=== PATIENT | female | born 1980 | race Two or more races ===

== ENCOUNTER 2017-11-21 23:31 | Emergency (ER) | payer SELFPAY ==
[2017-11-21] MEDS ORDERED: HYDROMORPHONE HCL INJ/PF 2 MG/ML AMPULE IV ONE (23:41)
--- NOTE | 2017-11-22 00:37 | ER Document Report ---
ED General Pain - General Chief Complaint: Rib Pain Stated Complaint: FALL/ RIB PAIN Time Seen by Provider: 11/21/17 23:41 Mode of Arrival: Stretcher Information source: Patient TRAVEL OUTSIDE OF THE [place] IN LAST 30 DAYS: No - HPI Patient complains to provider of: Left rib pain after fall injury Onset: Just prior to arrival Onset/Duration: Sudden Quality of pain: Achy Severity: Severe Pain Level: 5 Context: New onset Associated symptoms: None Exacerbated by: Movement, Coughing, Deep breathing Relieved by: Denies Similar symptoms previously: No Recently seen / treated by doctor: No Notes: Patient is a 37-year-old female presenting to the emergency room complaining of left lower rib pain after fall, states she was standing on a stool in the stool gave out causing her to fall impacting her left lower ribs on a bench, she reports that it is painful to move, to take a deep breath or cough, she denies any head injury or loss of consciousness, no nausea or vomiting - Related Data Allergies/Adverse Reactions: No Known Allergies Allergy (Verified 10/08/12 19:10) Past Medical History - General Information source: Patient - Social History Smoking Status: Unknown if Ever Smoked Family History: Reviewed & Not Pertinent - Past Medical History Cardiac Medical History: Denies: Hx Coronary Artery Disease, Hx Heart Attack, Hx Hypertension Pulmonary Medical History: Denies: Hx Asthma, Hx Bronchitis, Hx COPD, Hx Pneumonia Neurological Medical History: Denies: Hx Cerebrovascular Accident, Hx Seizures Musculoskeletal Medical History: Denies Hx Arthritis Past Surgical History: Reports: Hx Hysterectomy, Hx Thyroid Surgery - partial thyroidectomy - Immunizations Hx Diphtheria, Pertussis, Tetanus Vaccination: No Review of Systems - Review of Systems Constitutional: No symptoms reported EENT: No symptoms reported Cardiovascular: No symptoms reported Respiratory: No symptoms reported Gastrointestinal: No symptoms reported Genitourinary: No symptoms reported Female Genitourinary: No symptoms reported Musculoskeletal: See HPI Skin: No symptoms reported Hematologic/Lymphatic: No symptoms reported Neurological/Psychological: No symptoms reported -: Yes All other systems reviewed and negative Physical Exam - Vital signs Interpretation: Normal - General General appearance: Appears well, Alert - HEENT Head: Normocephalic, Atraumatic Eyes: Normal Pupils: PERRL Neck: Other - Healed scar to anterior neck - Respiratory Respiratory status: No respiratory distress Chest status: Tender - To palpate in the left lower ribs anteriorly, laterally and posteriorly, no palpable deformity, no crepitus Breath sounds: Normal Chest palpation: Normal - Cardiovascular Rhythm: Regular Heart sounds: Normal auscultation Murmur: No - Abdominal Inspection: Normal Distension: No distension Bowel sounds: Normal Tenderness: Nontender Organomegaly: No organomegaly - Back Back: Normal, Nontender - Extremities General upper extremity: Normal inspection, Nontender, Normal color, Normal ROM , Normal temperature General lower extremity: Normal inspection, Nontender, Normal color, Normal ROM , Normal temperature, Normal weight bearing. No: Gilberto's sign - Neurological Neuro grossly intact: Yes Cognition: Normal Orientation: AAOx4 [place] Coma Scale Eye Opening: Spontaneous [place] Coma Scale Verbal: Oriented [place] Coma Scale Motor: Obeys Commands [place] Coma Scale Total: 15 Speech: Normal Motor strength normal: LUE, RUE, LLE, RLE Sensory: Normal - Psychological Associated symptoms: Normal affect, Normal mood - Skin Skin Temperature: Warm Skin Moisture: Dry Skin Color: Normal Course - Re-evaluation Re-evalutation: 11/22/17 02:49 Patient resting comfortably, reports some pain relief, however continues to have a moderate amount pain, imaging findings discussed at bedside which are unremarkable, no evidence of a rib fracture or other injury, her abdomen is soft and nontender there does not seem to be any evidence for a spleen injury or other intra-abdominal injury as her tenderness is all on the bony portion of the lower ribs, patient was given an abdominal binder to uses a rib binder which seems to be giving her some relief at this time, she will be discharged with instructions for follow-up and advised to return if any additional concerns , patient acknowledges understanding and agreement with this plan - Diagnostic Test Radiology reviewed: Image reviewed, Reports reviewed Discharge - Discharge Clinical Impression: Contusion of rib on left side Qualifiers: Encounter type: initial encounter Qualified Code(s): S20.212A - Contusion of left front wall of thorax, initial encounter Condition: Stable Disposition: HOME, SELF-CARE Instructions: Rib Contusion ([facility]), Rib Injuries and Fractures ([facility]) Additional Instructions: Follow up with your primary care provider in one to 2 days. Return to the emergency room immediately if symptoms worsen or any additional concerns. Prescriptions: Ibuprofen 600 mg PO TID #30 tablet Oxycodone HCl/Acetaminophen [Percocet 5-325 mg Tablet] 1 - 2 tab PO ASDIR PRN # 20 tablet PRN Reason: Forms: Return to Work
[2017-11-22] MEDS ORDERED: ONDANSETRON HCL INJ/PF 4 MG/2 ML SDV IV ONE (01:53)
[2017-11-22] MEDS ORDERED: FENTANYL CITRATE INJ/PF 100 MCG/2 ML AMPUL IV ONE (01:56)
--- NOTE | 2017-11-22 02:28 | RADIOLOGY REPORT (SQ) ---
CLINICAL INDICATION: 37-year-old female status post fall with left rib pain. TECHNICAL DATA: Four views of the left sided ribs were performed as well as a PA chest. FINDINGS: Four views of the left-sided ribs were performed and reveal no evidence of fracture or other acute osseous injury. No focal lytic or sclerotic bone lesions are identified. No definite pneumothorax is seen. No definite soft tissue abnormalities are identified. The lungs are well expanded and clear. The cardiac silhouette and pulmonary vascularity are within normal limits. IMPRESSION: No evidence of acute rib injury. No evidence of acute intrathoracic disease.
[2017-11-22 03:21] VITALS: BP 134/78
[2017-11-22] MEDS ORDERED: HYDROCODONE/ACETAMINOPHEN 5-325 MG (6 TAB/ER DISP) PO PRN (03:42)
== END 2017-11-22 03:50 | disposition home or self-care (01) ==
LOC: ER 23:31
DX: S20.212A Contusion of left front wall of thorax, initial encounter (principal); R07.81 Pleurodynia; W01.190A Fall on same level from slipping, tripping and stumbling with subsequent striking against furniture, initial encounter
CPT/HCPCS: 99284; 96374; 96375; 71101; J3010; J1170; J2405

== ENCOUNTER → 2018-11-05 | Outpatient (CLI) | payer OTHER ==
--- NOTE | 2018-11-05 16:12 | WOMENS IMAGING REPORT ---
EXAM DESCRIPTION: 3D DX MAMMO BILAT; U/S BREAST UNILAT LIMITED COMPLETED DATE/TIME: 11/05/2018 8:47 am; 11/05/2018 9:22 am REASON FOR STUDY: N63.20 UNSPECIFIED LUMP IN THE LEFT BREAST, UNSPECIFIED QUADRANT; LT BREAST N63.20 N63.20 UNSPECIFIED LUMP IN THE LEFT BREAST, UNSPECIFIED QUAD COMPARISON: No previous EXAM PARAMETERS: Standard craniocaudal and mediolateral oblique views of each breast recorded using digital acquisition and breast tomosynthesis. Additional left breast 90 mediolateral view, cone compression upper outer quadrant left breast, viky tional right breast exaggerated craniocaudad view Left breast ultrasound was also performed. Read with the assistance of CAD: .[employer] Library Clerk Version 9.2 LIMITATIONS: None. FINDINGS: RIGHT BREAST MASSES: No suspicious masses. CALCIFICATIONS: No new or suspicious calcifications. ARCHITECTURAL DISTORTION: None. DEVELOPING DENSITY: None. ASYMMETRY: None noted. OTHER: No other significant findings. LEFT BREAST MASSES: No suspicious masses. CALCIFICATIONS: No new or suspicious calcifications. ARCHITECTURAL DISTORTION: None. DEVELOPING DENSITY: None. ASYMMETRY: None noted. OTHER: No other significant finding. Left breast ultrasound: Patient presents with a palpable abnormality in the lateral left breast. Ultrasound of the lateral l eft breast in the area of palpable abnormality indicated by the patient demonstrates no discrete cyst ic or solid lesions. No dilated ducts. No acoustic absorption. No focal findings. IMPRESSION: No mammographic evidence for malignancy right breast. No mammographic or sonographic evidence for malignancy left breast BREAST DENSITY: c. The breasts are heterogeneously dense, which may obscure small masses. BIRAD: ASSESSMENT: 1 Negative. RECOMMENDATION: RECOMMENDED FOLLOW UP: Please continue yearly bilateral screening mammography/ tomos ynthesis in November 2019. Consider tomosynthesis, given heterogeneously dense fibroglandular tissue bilaterally. Please note that negative mammography and ultrasound should not deter biopsy of a clinically suspicio us lesion. SPECIFIC INTERVENTION/IMAGING/CONSULTATION RECOMMENDED:No additional imaging intervention/ imaging/co nsultation needed at this time. COMMUNICATION:Patient notified by letter COMMENT: The patient has been notified of the results by letter per MQSA requirements. Additional no tification policies are in place for contacting patient with suspicious or incomplete findings. Quality ID #[id number]: The [employer] recommends an annual screening mammogram for women aged 40 years or over. This facility utilizes a reminder system to ensure that all patients receive reminder letters, and/or direct phone calls for appointments. This includes reminders for routine scr eening mammograms, diagnostic mammograms, or other Breast Imaging Interventions when appropriate. Th is patient will be placed in the appropriate reminder system. TECHNICAL DOCUMENTATION: FINDING NUMBER: (1) ASSESSMENT: (1) JOB ID: [id number] [employer]- All Rights Reserved Reading location - IP/workstation name: [email or web address]
== END ==
LOC: WI 08:23
PROVIDERS: ATTEND Nurse Practitioner Adult Health
DX: N63.22 Unspecified lump in the left breast, upper inner quadrant (principal)
CPT/HCPCS: 76642; 77066; G0279; 77062

== ENCOUNTER 2019-12-14 13:43 | Emergency (ER) | payer OTHER ==
--- NOTE | 2019-12-14 13:55 | ER Document Report ---
ED Medical Screen (RME) - General Stated Complaint: ANXIETY Time Seen by Provider: 12/14/19 13:49 Primary Care Provider: CORNELIA CASIANO NP [Primary Care Provider] - Follow up as needed Mode of Arrival: Ambulatory Information source: Patient Notes: 39-year-old female patient presented to the emergency department with anxiety and suicidal thoughts. Patient apparently has a history of same, [facility]. Patient appears acutely anxious, hyperventilating, keeps stating I just want to . Patient given Ativan 2 mg IM. She was taken immediately to room 18 where we helped change her into paper scrubs. Patient is cooperative with staff. I have greeted and performed a rapid initial assessment of this patient. A com prehensive ED assessment and evaluation of the patient, analysis of test results and completion of the medical decision making process will be conducted by additional ED providers. I have specifically instructed the patient or family members with the patient to immediately return to any nursing staff should anything change in the patient's condition or with their chief complaint. TRAVEL OUTSIDE OF THE [place] IN LAST 30 DAYS: No - Related Data Allergies/Adverse Reactions: No Known Allergies Allergy (Verified 10/08/12 19:10) Past Medical History - Social History Chew tobacco use (# tins/day): No Frequency of alcohol use: Occasional Drug Abuse: Marijuana - Past Medical History Cardiac Medical History: Denies: Hx Coronary Artery Disease, Hx Heart Attack, Hx Hypertension Pulmonary Medical History: Denies: Hx Asthma, Hx Bronchitis, Hx COPD, Hx Pneumonia Neurological Medical History: Denies: Hx Cerebrovascular Accident, Hx Seizures Renal/ Medical History: Denies: Hx Peritoneal Dialysis Musculoskeltal Medical History: Denies Hx Arthritis Past Surgical History: Reports: Hx Hysterectomy, Hx Thyroid Surgery - partial thyroidectomy, Hx Tubal Ligation - Immunizations Hx Diphtheria, Pertussis, Tetanus Vaccination: No Physical Exam - Vital signs Vitals: Temp Pulse Resp BP Pulse Ox 98.9 F 112 H 20 148/105 H 100 12/14/19 13:49 12/14/19 13:49 12/14/19 13:49 12/14/19 13:49 12/14/19 13:49 Course - Vital Signs Vital signs: Temp Pulse Resp BP Pulse Ox 98.9 F 112 H 20 148/105 H 100 12/14/19 13:49 12/14/19 13:49 12/14/19 13:49 12/14/19 13:49 12/14/19 13:49 Doctor's Discharge - Discharge Referrals: CORNELIA CASIANO NP [Primary Care Provider] - Follow up as needed
[2019-12-14] MEDS ORDERED: LORAZEPAM INJ 2 MG/1 ML VIAL IM ONE (13:56)
[2019-12-14 14:53] LABS: ABSOLUTE BASOPHILS # (AUTO) 0.1 10^3/uL (0.0-0.2); ABSOLUTE EOSINOPHILS # (AUTO) 0.2 10^3/uL (0.0-0.6); ABSOLUTE LYMPHOCYTES (AUTO) 1.6 10^3/uL (0.5-4.7); ABSOLUTE MONOCYTES (AUTO) 0.7 10^3/uL (0.1-1.4); ABSOLUTE NEUT (AUTO) 6.2 10^3/uL (1.7-8.2); BASOPHILS % (AUTO) 0.6 % (0-2); EOSINOPHILS % (AUTO) 2.1 % (0-6); HEMATOCRIT 39.6 % (36.0-47.0); HEMOGLOBIN 14.1 g/dL (12.0-15.5); LYMPHOCYTES % (AUTO) 18.7 % (13-45); MEAN CORPUSCULAR HEMOGLOBIN 28.9 pg (27.0-33.4); MEAN CORPUSCULAR HGB CONC 35.5 g/dL (32.0-36.0); MEAN CORPUSCULAR VOLUME 81 fl (80-97); MONOCYTES % (AUTO) 7.5 % (3-13); PLATELET COUNT 379 10^3/uL (150-450); RED BLOOD COUNT 4.86 10^6/uL (3.72-5.28); RED CELL DISTRIBUTION WIDTH 14.1 % (11.5-14.0); SEGMENTED NEUTROPHILS % (AUTO) 71.1 % (42-78); TOTAL CELLS COUNTED % (AUTO) 100 %; WHITE BLOOD COUNT 8.8 10^3/uL (4.0-10.5)
[2019-12-14 14:55] LABS: ALBUMIN 4.7 g/dL (3.5-5.0); ALKALINE PHOSPHATASE 86 U/L (38-126); ANION GAP 16 (5-19); ASPARTATE AMINO TRANSFERASE 26 U/L (14-36); BILIRUBIN,TOTAL 0.9 mg/dL (0.2-1.3); BLOOD UREA NITROGEN 10 mg/dL (7-20); CALCIUM 10.2 mg/dL (8.4-10.2); CARBON DIOXIDE 16 mmol/L (22-30); CHLORIDE 109 mmol/L (98-107); GLUCOSE 101 mg/dL (75-110); POTASSIUM 4.3 mmol/L (3.6-5.0); TOTAL PROTEIN 8.2 g/dL (6.3-8.2)
[2019-12-14 14:57] LABS: APPEARANCE,URINE CLEAR; BILIRUBIN,URINE NEGATIVE (NEGATIVE); COLOR,URINE YELLOW; GLUCOSE, URINE NEGATIVE (NEGATIVE); KETONES,URINE NEGATIVE (NEGATIVE); LEUKOCYTE ESTERASE,URINE NEGATIVE (NEGATIVE); NITRITE,URINE NEGATIVE (NEGATIVE); PROTEIN,URINE NEGATIVE (NEGATIVE); URINE SPECIFIC GRAVITY 1.014; UROBILINOGEN,URINE NEGATIVE mg/dL (<2.0)
[2019-12-14 14:58] LABS: ACETAMINOPHEN < 10 ug/mL (10-30); ALCOHOL < 10 mg/dL (NONE DETECTED); SALICYLATE < 1.0 mg/dL (2.0-20.0)
--- NOTE | 2019-12-14 15:10 | ER Document Report ---
ED Psych Disorder / Suicide - General Chief Complaint: Suicidal Ideation Stated Complaint: ANXIETY Time Seen by Provider: 12/14/19 13:49 Primary Care Provider: CORNELIA CASIANO NP [NO LOCAL MD] - Follow up as needed Mode of Arrival: Ambulatory Notes: Patient is a 39-year-old female with a past history of depression who presents to the emergency department with anxiety and suicidal ideation. Patient states that she had an argument with her daughter and states that, "she called me a bit ch." Patient states that she did not express her feelings towards her daughter. Patient states that she wanted to . Patient received Ativan in triage and states that she does feel better after receiving that medication. Patient states that she does feel little bit dizzy, and felt like this when she started to have anxiety. Denies any auditory or visual hallucinations. Denies any shortness of breath, difficulty breathing, or any other symptoms. Patient reports that she takes trazodone and Effexor. She states that she has been on these medications for a while. Patient states that she is on a new medication and she feels it is a "placebo pill." Patient states that she has poor coping mechanisms. TRAVEL OUTSIDE OF THE [place] IN LAST 30 DAYS: No - Related Data Allergies/Adverse Reactions: No Known Allergies Allergy (Verified 10/08/12 19:10) Past Medical History - General Information source: Patient - Social History Smoking Status: Never Smoker Chew tobacco use (# tins/day): No Frequency of alcohol use: Occasional Drug Abuse: Marijuana Family History: Reviewed & Not Pertinent - Past Medical History Cardiac Medical History: Denies: Hx Coronary Artery Disease, Hx Heart Attack, Hx Hypertension Pulmonary Medical History: Denies: Hx Asthma, Hx Bronchitis, Hx COPD, Hx Pneumonia Neurological Medical History: Denies: Hx Cerebrovascular Accident, Hx Seizures Renal/ Medical History: Denies: Hx Peritoneal Dialysis Musculoskeletal Medical History: Denies Hx Arthritis Psychiatric Medical History: Reports: Hx Depression Past Surgical History: Reports: Hx Hysterectomy, Hx Thyroid Surgery - partial thyroidectomy, Hx Tubal Ligation - Immunizations Hx Diphtheria, Pertussis, Tetanus Vaccination: No Review of Systems - Review of Systems Notes: REVIEW OF SYSTEMS: CONSTITUTIONAL : Denies recent illness. Denies recent unintentional weight loss. Denies fever, chills, or sweats. EENT: Denies eye, ear, throat, or mouth pain, discharge, or symptoms. Denies nasal or sinus congestion. CARDIOVASCULAR: Denies chest pain. RESPIRATORY: Denies shortness of breath, cough, congestion, difficulty breathing , or wheezing. GASTROINTESTINAL: Denies nausea, vomiting, and diarrhea. Denies abdominal pain. Denies constipation. GENITOURINARY: Denies difficulty urinating, burning, blood in urine, urgency or frequency. MUSCULOSKELETAL: Denies neck and back pain. Denies joint pain or swelling. SKIN: Denies rash, itchiness, or lesions HEMATOLOGIC : Denies easy bruising or bleeding. LYMPHATIC: Denies swollen, painful, enlarged glands. NEUROLOGICAL: Denies no numbness or tingling denies weakness. Denies headache. Denies altered mental status. Denies alteration in speech. PSYCHIATRIC: See HPI. All other systems reviewed and negative. Physical Exam - Vital signs Vitals: Temp Pulse Resp BP Pulse Ox 98.9 F 112 H 20 148/105 H 100 12/14/19 13:49 12/14/19 13:49 12/14/19 13:49 12/14/19 13:49 12/14/19 13:49 - Notes Notes: PHYSICAL EXAMINATION: GENERAL: Appears well, healthy, well-nourished, no acute distress. HEAD: Normocephalic, atraumatic. EYES: PERRL, conjunctiva normal, all extraocular movements intact, sclera nonicteric ENT: Moist mucous membranes. NECK: Supple, no noticeable swelling, redness, rash. Normal range of motion. LUNGS: Equal breath sounds bilaterally and clear to auscultation. No wheezes rales or rhonchi. CARDIOVASCULAR: S1-S2, regular rate, regular rhythm. Radial pulses 2+, normal. ABDOMEN: Normoactive bowel sounds. Soft, nontender, no guarding, no rebound tenderness, and no masses palpated. EXTREMITIES: Normal strength and range of motion, no pitting or edema. No cyanosis. NEUROLOGICAL: Moves all extremities upon command. Strength 5/5 in all extremities. PSYCH: Normal mood, normal affect. SKIN: Warm, dry. No rash, lesions, ulcerations noted. Normal skin turgor. Course - Re-evaluation Re-evalutation: 12/14/19 19:05 Hematology is unremarkable. Chemistries show a CO2 of 16. hCG is negative. LFTs are also normal. Urinalysis is unremarkable. Salicylates, acetaminophen, and alcohol are negative. Patient is positive for marijuana on her urine drug screen. - Vital Signs Vital signs: Temp Pulse Resp BP Pulse Ox 98.3 F 82 16 117/73 100 12/14/19 17:55 12/14/19 17:55 12/14/19 17:55 12/14/19 17:55 12/14/19 17:55 - Laboratory Result Diagrams: 12/14/19 14:15 12/14/19 14:15 Laboratory results interpreted by me: 12/14/19 12/14/19 12/14/19 14:15 14:15 14:20 RDW 14.1 H Chloride 109 H Carbon Dioxide 16 L Urine Ascorbic Acid 40 H Salicylates < 1.0 L Acetaminophen < 10 L - EKG Interpretation by Me Additional EKG results interpreted by me: 12/14/19 Sinus rhythm. Rate 80. NV 152; QRS 92; QT 420; QTc 485. No ST elevations or depressions noted. Discharge - Discharge Clinical Impression: Suicidal ideation Condition: Stable Disposition: PSYCH HOSP/UNIT Referrals: CORNELIA CASIANO NP [NO LOCAL MD] - Follow up as needed
[2019-12-14 15:15] LABS: URINE AMPHETAMINES SCREEN NEGATIVE; URINE BARBITURATES SCREEN NEGATIVE; URINE BENZODIAZEPINES SCREEN NEGATIVE; URINE COCAINE SCREEN NEGATIVE; URINE METHADONE SCREEN NEGATIVE; URINE PHENCYCLIDINE SCREEN NEGATIVE
[2019-12-14 15:16] LABS: URINE MARIJUANA (THC) SCREEN UNCONFIRMED POSITIVE
--- NOTE | 2019-12-14 18:01 | EKG REPORT ---
SEVERITY:- NORMAL ECG - SINUS RHYTHM : Confirmed by: Arsen Alejandra MD 14-Dec-2019 18:01:05
[2019-12-14] MEDS ORDERED: VENLAFAXINE HCL 37.5 MG CAP.SR.24H PO SCH (20:30)
--- NOTE | 2019-12-14 21:42 | PSYCHOLOGICAL NOTE ---
Psych Note - Psych Note Date seen by psych provider: 12/14/19 Time seen by psych provider: 18:15 Psych Note: [id number] Reason for Consult: panic attack and passive suicidal ideation Consent Permissions: N/A Patient is a 39 year old female who presented to the [facility] ED today via POV. Patient identified having a history of Depression and Anxiety and attends outpatient services at [facility]. Patient is prescribed Trazodone, Effexor, and a prn for anxiety, but cannot recall the name. Patient has no history of inpatient hospitalizations. Patient reports history of panic attacks and states she has a history of being on anti-depressants that work for periods of time and then seem to stop helping. Patient reports feelings as if when her depression seems to be under control, her anxiety seems to increase. She states an added stressor was getting into a disagreement where her daughter called her a b. Patient also notes triggers such as too many people in the grocery store. She reports having a bug fly into her ear yesterday in which she began to panic that it was still in there and felt as if she could not breathe. Patient reports running out of her psychiatric medications 2 days ago and last took her Effexor on Sunday. Patient was unable to recall dosage of medication, but states she thought it was the highest dose. She has been taking Effexor for two months. Patient states she wants to close her eyes and never wake up. She wants to disappear and leave without hurting anyone. Patients anxiety increases when her children see her having a panic attack and she feels worse about herself when this occurs. Patient states she will not go home and cut herself or kill herself, however is tired of living like this. She states she has had panic attacks for years and is very frustrated they have not found a medication that works for her. Patient was alert and oriented to self, person, place, time and situation. Mood was anxious and sad with congruent affect. She denied current HI. She reports passive SI without plan or intent. Patient did not appear to be responding to internal stimuli as evidenced by fair eye contact and answering questions appropriately when addressed. Thought processes are linear and organized. Conv ersational speech was within normal limits for rate, tone and prosody. Intellectual abilities are estimated to be average. Insight, judgment and impulse control were fair as evidenced by admitting self to the ED, voluntarily, and asking for help. Clinical Presentation: anxiety, depression, passive suicidal ideations with no plan or intent IVC Criteria per [place] GS 122C Dangerous to others Within the relevant past the individual No has inflicted or attempted to inflict or threatened to inflict serious bodily harm on another AND No that there is a reasonable probability that this conduct will be repeated. OR No has acted in such a way as to create a substantial risk of serious bodily harm to another AND No that there is a reasonable probability that this conduct will be repeated. OR No has engaged in extreme destruction of property AND NO that there is a reasonable probability that this conduct will be repeated. Previous episodes of dangerousness to others, when applicable, may be considered when determining reasonable probability of future dangerous conduct. Clear, cogent, and convincing evidence that an individual has committed a homicide in the relevant past is prima facie evidence of dangerousness to others. Dangerous to self Within the relevant past the individual has done any of the following: acted in such a way as to show ALL of the following: No The individual would be unable without care, supervision, and the continued assistance of others not otherwise available, to exercise self- control, judgment, and discretion in the conduct of the individual's daily responsibilities and social relations or to satisfy the individual's need for nourishment, personal or medical care, prison, or self-protection and safety. AND No There is a reasonable probability of the individual suffering serious physical debilitation within the near future unless adequate treatment is given. A showing of behavior that is grossly irrational, of actions that the individual is unable to control, of behavior that is grossly inappropriate to the situation, or of other evidence of severely impaired insight and judgment shall create a prima facie inference that the individual is unable to care for himself or herself. OR No has attempted suicide or threatened suicide Patient reports passive SI, however notes she will not go home and cut or kill self. AND No that there is a reasonable probability of suicide unless adequate treatment is given OR No has mutilated himself or herself or attempted to mutilate himself or herself AND No that there is a reasonable probability of serious self-mutilation unless adequate treatment is given. NOTE: Previous episodes of dangerousness to self, when applicable, may be considered when determining reasonable probability of physical debilitation, suicide, or self-mutilation. Medication recommendations made by the psychiatric medication provider Dr. Traci RYAN., includes: start Effexor 37.5 mg twice daily Impression/Plan: Patient is cleared from acute psychiatric services. Patient engaged appropriately and was able to identify some of her anxiety triggers. Patient was not demonstrating any behaviors of responding to internal stimuli ie maintained good eye contract, organized linear conversation. Patient is highly encouraged to try and refill prescriptions sooner to avoid running out of Effexor. Patient was provided psychoeducation on the side effects of stopping medication abruptly (although seems to be out of her control, waiting for a [place] mail order). Patient is recommended to continue outpatient therapy with [facility]. Patient is recommended to continue medication management with [facility] as well and refill prescription with them. Patient was provided local resources to include mobile crisis contact. Provided community outpatient referral list and highlighted mobile crisis numbers. Patient was also given the crisis hotline. Consulted with Dr. Hughes regarding the management and care of patient. ED Physician in agreement with recommendations.
[2019-12-14 21:49] VITALS: BP 142/87
== END 2019-12-14 21:49 | disposition home or self-care (01) ==
LOC: ER 13:43
DX: F41.9 Anxiety disorder, unspecified (principal); F41.0 Panic disorder [episodic paroxysmal anxiety]; F32.9 Major depressive disorder, single episode, unspecified; R45.851 Suicidal ideations; R42 Dizziness and giddiness; F12.10 Cannabis abuse, uncomplicated; Z62.820 Parent-biological child conflict; Z79.899 Other long term (current) drug therapy
CPT/HCPCS: 93005; 99284; 96372; 36415; 80307 ×4; 84703; 85025; 80053; 81001; 93010; J3490; J2060

== ENCOUNTER → 2020-01-07 | Outpatient (CLI) | payer OTHER ==
--- NOTE | 2020-01-07 10:08 | WOMENS IMAGING REPORT ---
EXAM DESCRIPTION: 3D SCREENING MAMMO BILAT IMAGES COMPLETED DATE/TIME: 01/07/2020 8:06 am REASON FOR STUDY: Z01.89 ENCOUNTER FOR OTHER SPECIFIED SPECIAL EXAMINATIONS Z01.89 ENCOUNTER FOR OT HER SPECIFIED SPECIAL EXAMINATIONS COMPARISON: 2018 EXAM PARAMETERS: Views: Standard craniocaudal and mediolateral oblique views of each breast recorded using digital acquisition and breast tomosynthesis. Read with the assistance of CAD. .[facility] - [employer] [place] [employer] Version 9.2 LIMITATIONS: None. FINDINGS: No suspicious masses, suspicious calcifications or architectural distortion. No areas of c oncern. IMPRESSION: NEGATIVE MAMMOGRAM. BIRADS 1. BREAST DENSITY: b. There are scattered areas of fibroglandular density. BIRAD: ASSESSMENT: 1 NEGATIVE RECOMMENDATION: ROUTINE SCREENING Please continue yearly bilateral screening mammography/tomosynthesis in January 2021 COMMENT: The patient has been notified of the results by letter per MQSA requirements. Additional no tification policies are in place for contacting patient with suspicious or incomplete findings. Quality ID #[id number]: [employer] recommends an annual screening mammogram for women aged 40 years or over. This facility utilizes a reminder system to ensure that all patients receive reminder letters, and/or direct phone calls for appointments. This includes reminders for routine scr eening mammograms, diagnostic mammograms, or other Breast Imaging Interventions when appropriate. Th is patient will be placed in the appropriate reminder system. TECHNICAL DOCUMENTATION: FINDING NUMBER: (1) ASSESSMENT: (1) JOB ID: [id number] 2010 [employer]- All Rights Reserved Reading location - IP/workstation name: [email or web address]
== END ==
LOC: WI 07:34
PROVIDERS: ATTEND Nurse Practitioner Adult Health
DX: Z12.31 Encounter for screening mammogram for malignant neoplasm of breast (principal)
CPT/HCPCS: 77063; 77067